=== PATIENT | female | born 1985 | race African-American/Black ===

== ENCOUNTER 2016-09-29 01:41 | Emergency (ER) | payer OTHER ==
[2016-09-29 02:00] VITALS: BP 131/77; BMI 23.0
[2016-09-29] MEDS ORDERED: ZITHROMAX TAB 250 MG PO ONE ×2 (02:04→02:06)
[2016-09-29] MEDS ORDERED: MOTRIN TAB 800 MG PO ONE ×2 (02:05→02:06)
--- NOTE | 2016-09-29 02:09 | DR.SORETHR ---
HPI - Time Seen Time seen: 14:00 - Primary Care Physician Primary Care Physician: NFD - Complaints Chief Complaint:: C/O LEFT EAR PAIN AND SORE THROAT, FEVER AT HOME OF 100F; WENT TO [facility] APPROXIMATELY 2 WEEKS AGO AND SHE WAS DIAGNOSED WITH STREP THROAT. PATIENT STATES SHE TOOK ALL OF ANTIBIOTIC PRESCRIBED, AMOXICILLIN AND REPORTS NO IMPROVEMENT IN SYMPTOMS. - Reviewed Nurses Notes Reviewed: Yes - Source History Provided: Patient - Mode of Arrival Mode of Arrival: Ambulatory - Timing Onset of Chief Complaint: 09/15/16 - Context Exposed to:: Streptococcus Symptoms:: Pain. denies: Muffled Voice, Hoarse, Difficulty with Secretion - Location Location:: Throat - Severity Pain Severity: Mild - Associated Signs and Symptoms Associated Signs and Symptoms: denies: Fever, Chills, Rash, Cough, Nasal Symptoms, Earache, Abdominal Pain PMH - PMH Past Medical History: Yes Past Medical History Comment: GRAVE'S DISEASE Past Surgical History: Yes Surgical History: - Family History History of Family Medical Conditions: No - Social History Type of Tobacco Use: None Alcohol Use: None Do you use any recreational Drugs:: No Lives With: Family Lives Where: Home - infectious screening In the last 2 months have you had wt loss of >10#?: NO Have you had fever, night sweats or hemotysis?: No Have you traveled outside the country in the last 6 months?: No Isolation: Standard ROS - Review of Systems Constitutional: No Symptoms Reported Eyes: No Symptoms Reported ENTM: Ear Pain, Mouth Pain Respiratoy: No Symptoms Reported Cardiovascular: No Symptoms Reported Gastrointestinal/Abdominal: No Symptoms Reported Genitourinary: No Symptoms Reported Neurological: No Symptoms Reported Musculoskeletal: No Symptoms Reported Integumentary: No Symptoms Reported Hematologic/Lymphatic: No Symptoms Reported Endocrine: No Symptoms Reported Psychiatric: No Symptoms Reported All Other Systems: Reviewed and Negative PE - Vital Signs Vitals: Temperature 98.4 F Pulse Rate 109 Respiratory Rate 20 Blood Pressure 131/77 O2 Sat by Pulse Oximetry 99 - General Limitations: No Limitations General Appearance: Alert - Head Head Exam: Normal Inspection - Eyes Eye exam: negative: EOMI, Scleral Icterus, Conjunctival Injection - ENT ENT Exam: Normal Exam External Ear Exam: Normal External Inspection Mouth Exam: Normal Inspection Throat Exam: Normal Inspection - Neck Neck Exam: Normal Inspection, Full ROM, Trachea Midline - Chest Chest Inspection: Normal Inspection - Respiratory Respiratory Exam: Normal Lung Sounds Bilat. negative: Accessory Muscle Use, Respiratory Distress - Extremities Extremities Exam: Normal Inspection, Full ROM - Back Back Exam: Normal Inspection - Neurologic Neurological Exam: Alert, Oriented X3 - Psychiatric Psychiatric Exam: Flat Affect - Skin Skin Exam: Intact, Normal Color - Diagnosis Discharge Problem: Pharyngitis due to group A beta hemolytic Streptococci - Discharge Plan Condition: Stable Prescriptions: Azithromycin [ZITHROMAX Tab 250 mg *] 1 dose PO DAILY #6 tab Ibuprofen [Motrin Tab 800 mg] 800 mg PO Q8H PRN #30 tab PRN Reason: Pain/Inflammation - Follow ups/Referrals Follow ups/Referrals: NFD,None [Primary Care Provider] - 3 days - Instructions
== END 2016-09-29 02:14 | disposition home or self-care (01) ==
LOC: ER 01:41
DX: J02.0 Streptococcal pharyngitis (principal); B95.1 Streptococcus, group B, as the cause of diseases classified elsewhere
CPT/HCPCS: 99282; Q0144